=== PATIENT | male | born 1975 | race Two or more races ===

== ENCOUNTER 2018-07-16 23:41 | Emergency (ER) | payer OTHER ==
[~2018-07-16] VITALS: Ht 182.9 cm; Wt 110.0 kg
[2018-07-16 23:43] VITALS: BP 135/88
--- NOTE | 2018-07-17 00:44 | NUR ---
Patient/Caregiver given discharge instructions and they have confirmed that they understand the instructions. Patient ambulatory with steady gait.
== END 2018-07-17 01:15 | disposition home or self-care (01) ==
LOC: ED 07-17 00:36
DX: S93.491A Sprain of other ligament of right ankle, initial encounter (principal); W01.0XXA Fall on same level from slipping, tripping and stumbling without subsequent striking against object, initial encounter; Y93.89 Activity, other specified; Y92.69 Other specified industrial and construction area as the place of occurrence of the external cause; Y99.8 Other external cause status
CPT/HCPCS: 99283